=== PATIENT | female | born 1945 | race Caucasian/White ===

== ENCOUNTER 2020-02-25 10:50 | Outpatient (REF) | payer MEDICARE, SELFPAY ==
--- NOTE | 2020-02-25 10:53 | XR_ITS ---
EXAMINATION: XR KNEE, LEFT XR KNEE, BILATERAL CLINICAL INFORMATION: Knee pain on the left. COMPARISON: None TECHNIQUE: Standing AP views of both knees, lateral and sunrise views of the left knee. FINDINGS: Extensive chondrocalcinosis is seen bilaterally. Similar degenerative changes are seen bilaterally on the AP view with medial greater than lateral joint space narrowing and marginal osteophytes. Specific attention to the left knee demonstrates a small joint effusion. Moderately severe patellofemoral osteoarthritis with joint space narrowing, marginal osteophytes and lateral tracking. No radiographic evidence of acute fracture or subluxation. Vascular calcifications. XR/XR knee LT 2V IMPRESSION: 1. [id number] degenerative changes of the left knee. Single AP view of the right knee also indicates a similar degree and extent of degenerative change. 2. Extensive chondrocalcinosis bilaterally. 3. Trace left joint effusion.
--- NOTE | 2020-02-25 10:53 | XR_ITS ---
EXAMINATION: XR KNEE, LEFT XR KNEE, BILATERAL CLINICAL INFORMATION: Knee pain on the left. COMPARISON: None TECHNIQUE: Standing AP views of both knees, lateral and sunrise views of the left knee. FINDINGS: Extensive chondrocalcinosis is seen bilaterally. Similar degenerative changes are seen bilaterally on the AP view with medial greater than lateral joint space narrowing and marginal osteophytes. Specific attention to the left knee demonstrates a small joint effusion. Moderately severe patellofemoral osteoarthritis with joint space narrowing, marginal osteophytes and lateral tracking. No radiographic evidence of acute fracture or subluxation. Vascular calcifications. XR/XR knee standing BI IMPRESSION: 1. [id number] degenerative changes of the left knee. Single AP view of the right knee also indicates a similar degree and extent of degenerative change. 2. Extensive chondrocalcinosis bilaterally. 3. Trace left joint effusion.
== END 2020-02-25 10:51 | disposition home or self-care (01) ==
LOC: HO.HOSX 10:50
PROVIDERS: Visit Provider Orthopaedic Surgery
DX: M17.12 Unilateral primary osteoarthritis, left knee (principal)
CPT/HCPCS: 20610; 73560; 73565; 99202; J1100